=== PATIENT | female | born 1975 | race Caucasian/White ===

== ENCOUNTER → 2016-09-02 | Outpatient (REF) ==
[~2016-09-02] MED LIST: ALEVE220 M1 PO; LEXAPRO 10MG10 MG PO; NORCO 325 MG-51 TA1 PO; PREDNISONE10 MG PO; ZOFRAN ODT4 MG PO
== END ==
LOC: LAB 10:44
DX: R63.4 Abnormal weight loss (principal); R53.83 Other fatigue; R35.8 Other polyuria

== ENCOUNTER → 2016-09-29 | Outpatient (REF) | LOC: LAB 11:48 | DX: R53.83 Other fatigue (principal); R63.4 Abnormal weight loss; R35.8 Other polyuria ==

== ENCOUNTER → 2016-10-04 | Outpatient (REF) | LOC: RAD 07:42 | DX: N83.9 Noninflammatory disorder of ovary, fallopian tube and broad ligament, unspecified (principal); R31.9 Hematuria, unspecified | CPT/HCPCS: Q9967 ==

== ENCOUNTER → 2016-10-07 | Outpatient (REF) | LOC: LAB 06:59 | DX: E11.9 Type 2 diabetes mellitus without complications (principal) ==

== ENCOUNTER → 2016-10-10 | Outpatient (REF) | LOC: RAD 07:12 | DX: R13.10 Dysphagia, unspecified (principal); E11.9 Type 2 diabetes mellitus without complications ==

== ENCOUNTER 2016-10-24 13:28 | Emergency (ER) | payer SELFPAY ==
[~2016-10-24] VITALS: Ht 154.9 cm; Wt 45.5 kg
[2016-10-24] MEDS ORDERED: ALEVE220 M1 PO (13:45)
[2016-10-24] MEDS ORDERED: PREDNISONE10 MG PO (13:45)
[2016-10-24] MEDS ORDERED: ZOFRAN ODT4 MG PO (19:42)
[2016-10-24] MEDS ORDERED: NORCO 325 MG-51 TA1 PO (19:42)
[2016-10-24] MEDS ORDERED: LEXAPRO 10MG10 MG PO (19:42)
[2016-10-24 19:54] VITALS: BP 96/53
== END 2016-10-24 19:54 | disposition home or self-care (01) ==
LOC: ED 13:28
DX: A08.4 Viral intestinal infection, unspecified (principal); F32.9 Major depressive disorder, single episode, unspecified
CPT/HCPCS: A4353; J2270; J2405; J7030; Q9967

== ENCOUNTER 2018-03-31 12:17 | Emergency (ER) | payer BC ==
[2018-03-31] MEDS ORDERED: ONDANSETRON ODT8 MG PO (13:08)
[2018-03-31] MEDS ORDERED: CYMBALTA30 M1 PO (13:09)
[2018-03-31] MEDS ORDERED: LEVOTHYROXIN0.025 MG PO (13:09)
[2018-03-31] MEDS ORDERED: OMEPRAZOLE40 MG PO (13:09)
[2018-03-31] MEDS ORDERED: RANITIDINE HCL300 M1 PO (13:10)
[2018-03-31 13:21] LABS: EOS # 0.1 (0.04-0.40); EOS % 0.7 % (1.0-5.0); HEMATOCRIT 41.4 % (37.0-47.0); LYMPH# 1.6 (1.50-4.00); MEAN CELL VOLUME 94 fl (78-100); MEAN CORPUSCULAR HEMOGLOBIN 32 pg (27-31); MEAN CORPUSCULAR HGB CONC 34 g/dL (33-37); MEAN PLATELET VOLUME 10.2 fl (7.4-10.4); MONO # 0.4 (0.20-0.80); NEU # 6.5 (1.40-6.50); PLATELET COUNT 379 K/mm3 (130-400); RED BLOOD COUNT 4.42 M/mm3 (4.10-5.30); RED CELL DISTRIBUTION WIDTH 12.1 % (11.5-14.5); WHITE BLOOD COUNT 8.6 K/mm3 (4.8-10.8)
[2018-03-31 13:27] LABS: ALBUMIN 4.9 g/dL (3.5-5.0); POTASSIUM 3.4 mmol/L (3.6-5.0); TOTAL BILIRUBIN 0.7 mg/dL (0.2-1.3); TOTAL PROTEIN 8.3 g/dL (6.3-8.2)
[2018-03-31 14:22] LABS: URINE APPEARANCE HAZY; URINE BILIRUBIN NEGATIVE (NEGATIVE); URINE COLOR YELLOW; URINE GLUCOSE NEGATIVE (NEGATIVE); URINE KETONE 2+ (NEGATIVE); URINE NITRATE NEGATIVE (NEGATIVE); URINE PROTEIN(semi-quant) TRACE mg/dL (NEGATIVE); URINE UROBILINOGEN NORMAL (NORMAL)
[2018-03-31 14:23] LABS: URINE BLOOD TRACE (NEGATIVE); URINE LEUKOCYTE ESTERASE TRACE (NEGATIVE)
[2018-03-31] MEDS ORDERED: BENTYL 20MG20 MG/TAB PO (15:47)
[2018-03-31 17:23] VITALS: BP 135/80
== END 2018-03-31 17:33 | disposition home or self-care (01) ==
LOC: ED 12:17
PROVIDERS: Family Medicine
DX: N39.0 Urinary tract infection, site not specified (principal); E87.6 Hypokalemia; N84.0 Polyp of corpus uteri
CPT/HCPCS: C9113; J1885; J2060; J2405; J3480

== ENCOUNTER → 2018-06-13 | Outpatient (CLI) | payer BC ==
[~2018-06-13] MED LIST changes: +BENTYL 20MG20 MG/TAB PO; +CYMBALTA30 M1 PO; +LEVOTHYROXIN0.025 MG PO; +OMEPRAZOLE40 MG PO; +ONDANSETRON ODT8 MG PO; +RANITIDINE HCL300 M1 PO
== END ==
LOC: CARDLAB 08:53 → CARDREHAB 14:17
DX: R76.8 Other specified abnormal immunological findings in serum (principal)
CPT/HCPCS: G0399

== ENCOUNTER → 2018-09-03 | Outpatient (CLI) | payer BC | LOC: RAD 15:23 | DX: K21.9 Gastro-esophageal reflux disease without esophagitis (principal) ==

== ENCOUNTER 2019-05-14 09:38 | Emergency (ER) | payer BC ==
[~2019-05-14] VITALS: Ht 162.6 cm; Wt 62.3 kg
[2019-05-14] MEDS ORDERED: AMITRIPTYLINE H25 M2 PO (10:02)
[2019-05-14] MEDS ORDERED: COLACE100 M1 PO (10:03)
[2019-05-14] MEDS ORDERED: ZYRTEC10 M3 PO (10:03)
[2019-05-14] MEDS ORDERED: NEURONTIN300 MG/CAP PO (10:07)
[2019-05-14] MEDS ORDERED: ARAVA10 M1 PO (10:08)
[2019-05-14] MEDS ORDERED: MELOXICAM15 MG PO (10:09)
[2019-05-14] MEDS ORDERED: TOPIRAMATE50 MG PO (10:10)
[2019-05-14] MEDS ORDERED: METAXALONE800 M2 PO (10:12)
[2019-05-14 10:14] LABS: HEMATOCRIT 44.8 % (37.0-47.0); HEMOGLOBIN 14.5 g/dL (12.5-16.0); MEAN CELL VOLUME 96 fl (78-100); MEAN CORPUSCULAR HEMOGLOBIN 31 pg (27-31); MEAN CORPUSCULAR HGB CONC 32 g/dL (33-37); MEAN PLATELET VOLUME 10.8 fl (7.4-10.4); PLATELET COUNT 367 K/mm3 (130-400); RED BLOOD COUNT 4.68 M/mm3 (4.10-5.30); RED CELL DISTRIBUTION WIDTH 13.5 % (11.5-14.5); WHITE BLOOD COUNT 14.3 K/mm3 (4.8-10.8)
[2019-05-14 10:15] LABS: ALBUMIN 5.3 g/dL (3.5-5.0); POTASSIUM 3.4 mmol/L (3.5-5.1)
[2019-05-14 10:18] LABS: TOTAL PROTEIN 8.9 g/dL (6.4-8.3)
[2019-05-14 10:19] LABS: TOTAL BILIRUBIN 0.4 mg/dL (0.2-1.2)
[2019-05-14 10:32] LABS: LYMPHOCYTE 4 % (20-51); MONOCYTE 2 % (3-10); NEUTROPHILS 94 % (42-75)
[2019-05-14 12:07] LABS: URINE APPEARANCE CLEAR; URINE BILIRUBIN NEGATIVE (NEGATIVE); URINE BLOOD TRACE (NEGATIVE); URINE COLOR YELLOW; URINE GLUCOSE NEGATIVE (NEGATIVE); URINE KETONE 3+ (NEGATIVE); URINE LEUKOCYTE ESTERASE NEGATIVE (NEGATIVE); URINE NITRATE NEGATIVE (NEGATIVE); URINE PROTEIN(semi-quant) 2+ mg/dL (NEGATIVE); URINE UROBILINOGEN NORMAL (NORMAL)
[2019-05-14] MEDS ORDERED: ZOFRAN ODT4 MG PO (13:33)
[2019-05-14 13:38] VITALS: BP 114/83
[2019-05-16] MEDS ORDERED: AMOXICILLIN875 MG PO (10:11)
== END 2019-05-14 13:38 | disposition home or self-care (01) ==
LOC: ED 09:38
PROVIDERS: Nurse Practitioner
DX: R11.2 Nausea with vomiting, unspecified (principal); R10.30 Lower abdominal pain, unspecified; Z87.891 Personal history of nicotine dependence
CPT/HCPCS: J2060; J2405; J7030

== ENCOUNTER 2021-02-12 10:03 | Emergency (ER) | payer BC ==
[~2021-02-12] VITALS: Wt 60.2 kg
[~2021-02-12 10:03] MED LIST changes: +AMITRIPTYLINE H25 M2 PO; +AMOXICILLIN875 MG PO; +ARAVA10 M1 PO; +COLACE100 M1 PO; +MELOXICAM15 MG PO; +METAXALONE800 M2 PO; +NEURONTIN300 MG/CAP PO; +TOPIRAMATE50 MG PO; +ZYRTEC10 M3 PO
[2021-02-12] MEDS ORDERED: ACETAMINOPHEN-H1 TA2 PO (10:25)
[2021-02-12] MEDS ORDERED: FLOMAX0.4 MG PO (10:25)
[2021-02-12] MEDS ORDERED: PANTOPRAZOLE SO40 MG PO (10:26)
[2021-02-12] MEDS ORDERED: ESTRACE 1MG1 MG/TAB PO (10:26)
[2021-02-12 10:35] LABS: BASO # 0.07 K/mm3 (0.02-0.10); EOS # 0.17 K/mm3 (0.04-0.40); EOS % 0.8 % (1.0-5.0); HEMATOCRIT 45.3 % (37.0-47.0); HEMOGLOBIN 14.3 g/dL (12.5-16.0); LYMPH# 2.03 K/mm3 (1.50-4.00); MEAN CELL VOLUME 99 fl (78-100); MEAN CORPUSCULAR HEMOGLOBIN 31 pg (27-31); MEAN CORPUSCULAR HGB CONC 32 g/dL (33-37); MEAN PLATELET VOLUME 11.4 fl (7.4-10.4); MONO # 1.07 K/mm3 (0.20-0.80); NEU # 18.69 K/mm3 (1.40-6.50); PLATELET COUNT 360 K/mm3 (130-400); RED BLOOD COUNT 4.59 M/mm3 (4.10-5.30); RED CELL DISTRIBUTION WIDTH 12.6 % (11.5-14.5)
[2021-02-12 10:39] LABS: WHITE BLOOD COUNT 22.1 K/mm3 (4.8-10.8)
[2021-02-12 10:43] LABS: ALBUMIN 4.7 g/dL (3.5-5.0); POTASSIUM 3.1 mmol/L (3.5-5.1); SODIUM 143 mmol/L (136-145)
[2021-02-12 10:45] LABS: GLUCOSE 219 mg/dL (65-105)
[2021-02-12 10:46] LABS: TOTAL PROTEIN 7.7 g/dL (6.4-8.3)
[2021-02-12 10:47] LABS: CARBON DIOXIDE 18 mmol/L (22-29); TOTAL BILIRUBIN 0.4 mg/dL (0.2-1.2)
[2021-02-12 10:49] LABS: ALCOHOL IN-HOUSE < 10 mg/dL (<10)
[2021-02-12 10:51] LABS: AST-SGOT 40 U/L (5-34)
[2021-02-12 10:52] LABS: ALT/SGPT 10 U/L (0-55)
[2021-02-12 11:39] LABS: URINE APPEARANCE CLEAR; URINE COLOR YELLOW; URINE GLUCOSE NEGATIVE (NEGATIVE); URINE KETONE 2+ (NEGATIVE); URINE PROTEIN(semi-quant) TRACE mg/dL (NEGATIVE)
[2021-02-12 11:40] LABS: URINE BILIRUBIN NEGATIVE (NEGATIVE); URINE BLOOD NEGATIVE (NEGATIVE); URINE LEUKOCYTE ESTERASE NEGATIVE (NEGATIVE); URINE MUCUS PRESENT (NOT PRESENT); URINE NITRATE NEGATIVE (NEGATIVE); URINE UROBILINOGEN NORMAL (NORMAL)
[2021-02-12 16:42] LABS: POTASSIUM 3.6 mmol/L (3.5-5.1)
[2021-02-12 17:35] VITALS: BP 142/100
== END 2021-02-12 17:30 | disposition home or self-care (01) ==
LOC: ED 10:03
PROVIDERS: Nurse Practitioner
DX: K52.9 Noninfective gastroenteritis and colitis, unspecified (principal); F32.A Depression, unspecified; G40.909 Epilepsy, unspecified, not intractable, without status epilepticus; M06.9 Rheumatoid arthritis, unspecified; M79.7 Fibromyalgia; Z20.822 Contact with and (suspected) exposure to COVID-19; Z79.891 Long term (current) use of opiate analgesic; Z79.899 Other long term (current) drug therapy
CPT/HCPCS: J2405; J2550; J3010; J3480; J7030; Q9967

== ENCOUNTER 2023-09-20 08:07 | Observation (INO) | payer OTHER ==
[~2023-09-20] VITALS: Ht 154.9 cm; Wt 52.2 kg
[~2023-09-20 08:07] MED LIST changes: +ACETAMINOPHEN-H1 TA2 PO; +ESTRACE 1MG1 MG/TAB PO; +FLOMAX0.4 MG PO; +PANTOPRAZOLE SO40 MG PO
[2023-09-20] MEDS ORDERED: NS 1,000 ML IV SCH (09:00)
[2023-09-20 09:28] LABS: BASO # 0.01 K/mm3 (0.02-0.10); HEMATOCRIT 43.4 % (37.0-47.0); HEMOGLOBIN 14.5 g/dL (12.5-16.0); LYMPH# 1.11 K/mm3 (1.50-4.00); MEAN CELL VOLUME 95 fl (78-100); MEAN CORPUSCULAR HEMOGLOBIN 32 pg (27-31); MEAN CORPUSCULAR HGB CONC 33 g/dL (33-37); MEAN PLATELET VOLUME 10.6 fl (7.4-10.4); NEU # 8.85 K/mm3 (1.40-6.50); PLATELET COUNT 293 K/mm3 (130-400); RED BLOOD COUNT 4.56 M/mm3 (4.10-5.30); RED CELL DISTRIBUTION WIDTH 12.8 % (11.5-14.5); WHITE BLOOD COUNT 10.5 K/mm3 (4.8-10.8)
[2023-09-20 09:29] LABS: ALBUMIN 4.9 g/dL (3.5-5.0)
[2023-09-20 09:30] LABS: CALCIUM 10.2 mg/dL (8.3-10.5)
[2023-09-20 09:31] LABS: TOTAL PROTEIN 7.8 g/dL (6.4-8.3)
[2023-09-20 09:33] LABS: TOTAL BILIRUBIN 0.3 mg/dL (0.2-1.2)
[2023-09-20] MEDS ORDERED: Potassium Chloride 100 ML IV SCH ×2 (10:00→19:00)
[2023-09-20 11:01] LABS: URINE APPEARANCE SLIGHTLY CLOUDY (CLEAR); URINE COLOR YELLOW (YELLOW)
[2023-09-20 11:02] LABS: URINE BILIRUBIN 1+ (NEGATIVE); URINE BLOOD 1+ (NEGATIVE); URINE GLUCOSE NEGATIVE (NEGATIVE); URINE KETONE 3+ (NEGATIVE); URINE LEUKOCYTE ESTERASE NEGATIVE (NEGATIVE); URINE NITRATE NEGATIVE (NEGATIVE); URINE PROTEIN(semi-quant) 2+ (NEGATIVE)
[2023-09-20 11:03] LABS: URINE MUCUS PRESENT (NOT PRESENT)
[2023-09-20] MEDS ORDERED: levETIRAcetam 1,000 MG in Syringe 1 EACH IV ONE (11:45)
[2023-09-20] MEDS ORDERED: Acetaminophen 325 MG TAB PO PRN (11:45)
[2023-09-20] MEDS ORDERED: Naloxone 0.4 MG/ML VIAL IV PRN (11:45)
[2023-09-20] MEDS ORDERED: Cetirizine 10 MG TAB PO PRN (12:00)
[2023-09-20] MEDS ORDERED: Cyclobenzaprine 10 MG TAB PO PRN (12:00)
[2023-09-20] MEDS ORDERED: Topiramate 25 MG TAB PO SCH ×2 (14:00→21:00)
[2023-09-20] MEDS ORDERED: Gabapentin 300 MG CAP PO SCH (14:00)
[2023-09-20 14:48] VITALS: BP 148/86
[2023-09-20] MEDS ORDERED: Pantoprazole 40 MG in NS 10 ML IV SCH (16:30)
[2023-09-20 18:19] LABS: CALCIUM 9.6 mg/dL (8.3-10.5)
[2023-09-20 18:52] VITALS: BP 144/80
[2023-09-20] MEDS ORDERED: levETIRAcetam 1,000 MG in Syringe 1 EACH IV SCH (21:00)
[2023-09-20] MEDS ORDERED: Amitriptyline 25 MG TAB PO SCH (21:00)
[2023-09-20 22:16] VITALS: BP 161/81
[2023-09-21] MEDS ORDERED: Calcium Carbonate Chewable 500 MG TAB PO PRN (00:45)
[2023-09-21 01:51] VITALS: BP 148/87
[2023-09-21 05:49] VITALS: BP 130/85
[2023-09-21 06:57] LABS: BASO # 0.01 K/mm3 (0.02-0.10); HEMATOCRIT 40.5 % (37.0-47.0); HEMOGLOBIN 13.3 g/dL (12.5-16.0); LYMPH# 1.69 K/mm3 (1.50-4.00); MEAN CELL VOLUME 97 fl (78-100); MEAN CORPUSCULAR HEMOGLOBIN 32 pg (27-31); MEAN CORPUSCULAR HGB CONC 33 g/dL (33-37); MEAN PLATELET VOLUME 11.2 fl (7.4-10.4); MONO # 0.51 K/mm3 (0.20-0.80); NEU # 9.93 K/mm3 (1.40-6.50); PLATELET COUNT 266 K/mm3 (130-400); RED BLOOD COUNT 4.19 M/mm3 (4.10-5.30); RED CELL DISTRIBUTION WIDTH 12.8 % (11.5-14.5); WHITE BLOOD COUNT 12.2 K/mm3 (4.8-10.8)
[2023-09-21 07:07] LABS: ALBUMIN 4.4 g/dL (3.5-5.0)
[2023-09-21 07:09] LABS: CALCIUM 9.9 mg/dL (8.3-10.5)
[2023-09-21 07:10] LABS: TOTAL PROTEIN 7.1 g/dL (6.4-8.3)
[2023-09-21 07:12] LABS: TOTAL BILIRUBIN 0.4 mg/dL (0.2-1.2)
--- NOTE | 2023-09-21 07:44 | NUR ---
PROVIDER BIRGIT FLOOR COVERINGS INSTALLER, NOTFIED OF PTS ELEVATED T WAVES.
--- NOTE | 2023-09-21 08:45 | NUR ---
PER PRICING SPECIALIST AND PT, PT VOMITTED AROUND MIDNIGHT LAST NIGHT, HASNT HAD AN EPISODE SINCE. PT DID HAVE SOME NAUSEA WHILE TAKING PILLS BUT WAS ABLE TO KEEP THEM DOWN. ASSESMENT COMPLETE. IV RAC FLUSHED WITH 10ML NS. PT COMPLAINED OF A HEADACHE THIS MORNING, PRN PAIN MEDICATION GIVEN, SEE MAR. EKG DONE, SINUS BRADYCARDIA. CALL LIGHT WITHIN REACH.
[2023-09-21] MEDS ORDERED: Acetaminophen 325 MG TAB PO ONE (09:00)
[2023-09-21] MEDS ORDERED: DULoxetine 30 MG CAP PO SCH (09:00)
[2023-09-21 09:14] VITALS: BP 144/85
[2023-09-21 14:05] VITALS: BP 137/88
[2023-09-21 17:24] VITALS: BP 150/88
[2023-09-21] MEDS ORDERED: Iohexol 300 - 100 ML VIAL IV ONE (19:02)
[2023-09-21 22:08] VITALS: BP 134/67
[2023-09-21] MEDS ORDERED: Ibuprofen 200 MG TAB PO ONE (23:15)
[2023-09-22] MEDS ORDERED: Haloperidol Lactate 5 MG/ML VIAL IV ONE ×2 (00:30→01:15)
--- NOTE | 2023-09-22 01:00 | NUR ---
PT STATES SHE FEELS MUCH BETTER AFTER HALDOL. PT STATES HER NAUSEA AND PAIN IS ALMOST GONE. PT DENIES VOMITING AND IS ABLE TO SLEEP.
[2023-09-22 02:22] VITALS: BP 128/64; BP_SYST 126
[2023-09-22 05:39] VITALS: BP 126/82
--- NOTE | 2023-09-22 05:45 | NUR ---
PT C/O A RASH AND ITCHING ALL OVER. PT ASKED IF SHE HAD EVER RECEIVED HALDOL BEFORE AND SHE SAID SHE THINKS SHE HAS. I EXPLAINED THAT HALDOL WAS USED FOR CYCLIC VOMITING WITH MARIJUANA USE AND THE PATIENT BECAME VERY UPSET. PT STATES SHE IS TIRED OF BEING TREATED BAD BC SHE SMOKES A LITTLE POT. I TOLD HER WE ARE NOT JUDGING HER OR TREATING HER BAD, WE ARE JUST TRYING TO FIGURE OUT WHY SHE HAS ABD PAIN AND VOMITING. RAMIRO VELASQUEZ NOTIFIED OF HIVES, IV BENADRYL ORDERED AND GIVEN. HALDOL ADDED TO ALLERGY LIST. PT STATES SHE WOULD BE BETTER IF WE WOULD GIVE HER IV FLUIDS. I EXPLAINED THAT WE DON'T GIVE IVF IF SHE IS NOT VOMITING AND OUR GOAL IS TO GET HER TO EAT AND DRINK SO SHE CAN GO HOME. SHE INFORMED ME SHE HAD VOMITED A COUPLE OF TIMES TONIGHT AND JUST NOT TOLD ME SO THAT PROVES MY THEORY WRONG. HER VOMITING IS NOT DUE TO HER MARIJUANA USE. SHE KNOWS THIS BECAUSE SHE WAS TESTED FOR IT IN [place]. I TOLD THE PATIENT THAT I DIDN'T KNOW OF A TEST FOR CYCLIC VOMITING. PT STATES SHE WILL BE LEAVING TODAY NO MATTER IF SHE EATS AND DRINKS WITHOUT VOMITING OR NOT. RAMIRO VELASQUEZ NOTIFIED.
[2023-09-22] MEDS ORDERED: diphenhydrAMINE 50 MG/ML 1 ML VIAL IV\\IM ONE (06:00)
[2023-09-22] MEDS ORDERED: EFFER-K20 MEQ PO (08:16)
[2023-09-22 08:42] VITALS: BP 131/86
[2023-09-22 08:51] VITALS: BP 131/86
== END 2023-09-22 08:51 | disposition home or self-care (01) ==
LOC: ED 08:07 → MED/SURG 11:35
PROVIDERS: Family Medicine; ADMIT Physician Assistant
DX: E87.6 Hypokalemia (principal); R11.2 Nausea with vomiting, unspecified; R10.9 Unspecified abdominal pain; F17.200 Nicotine dependence, unspecified, uncomplicated
CPT/HCPCS: G0378; J1200; J1630; J1650; J1953; J2765; J3480; J7030; J7120; Q9967